=== PATIENT | female | born 1960 | race Caucasian/White ===

== ENCOUNTER 2023-12-19 06:14 | Day surgery (SDC) | payer OTHER ==
[~2023-12-19] VITALS: Ht 160 cm; Wt 77.1 kg
[2023-12-19] MEDS ORDERED: CEFAZOLIN SOD 2 GM in D5W 50 ML IV ONE (07:00)
[2023-12-19] MEDS ORDERED: LR 1,000 ML IV SCH (08:15)
[2023-12-19] MEDS ORDERED: ONDANSETRON HCL 4 MG/2 ML VIAL IVP PRN ×2 (08:15→08:30)
[2023-12-19] MEDS ORDERED: HYDROmorphone 1 MG/ML INJ. CARTRIDGE IVP PRN (08:15)
[2023-12-19] MEDS ORDERED: HYDROmorphone 2 MG/ML VIAL IVP PRN (08:15)
[2023-12-19] MEDS ORDERED: KETOROLAC TROMETHAMINE 30 MG VIAL IVP PRN (08:15)
[2023-12-19] MEDS ORDERED: ONDANSETRON HCL 4 MG/2 ML VIAL ONE (08:30)
[2023-12-19] MEDS ORDERED: OXYCODONE/ACETAMINOPHEN 5-325 TABLET PO PRN ×2 (08:30)
[2023-12-19] MEDS ORDERED: NS IRRIG SOLN 5000 ML IR ONE (08:30)
[2023-12-19] MEDS ORDERED: HYDROcodone/ACETAMIN 5-325 MG TAB (NORCO/ VICODIN) PO PRN (08:30)
[2023-12-19] MEDS ORDERED: NS IRRIG SOLN 1000 ML IR ONE (08:30)
[2023-12-19] MEDS ORDERED: MIDAZOLAM HCL 5 MG/ML VIAL (VERSED) IV ONE (08:30)
[2023-12-19] MEDS ORDERED: METOCLOPRAMIDE HCL 10 MG/2 ML VIAL ONE (08:30)
[2023-12-19] MEDS ORDERED: LR 1,000 ML IV.SOLN IV ONE (08:30)
[2023-12-19] MEDS ORDERED: KETOROLAC TROMETHAMINE 30 MG VIAL ONE (08:30)
[2023-12-19] MEDS ORDERED: fentaNYL CITRATE/PF 100 MCG/2 ML AMP ONE (08:30)
[2023-12-19] MEDS ORDERED: PROPOFOL 200MG/ 20ML VIAL (DIPRIVAN) IV ONE (08:30)
[2023-12-19] MEDS ORDERED: SEVOFLURANE 15 MIN GAS INH ONE (08:30)
[2023-12-19] MEDS ORDERED: LIDOCAINE 2%, 20 ML MDV ONE (08:30)
[2023-12-19 08:43] VITALS: O2SAT 99
[2023-12-19 10:12] VITALS: BP_SYST 134; PULSE 67; RESP 20
== END 2023-12-19 10:00 | disposition home or self-care (01) ==
LOC: SDS 06:14 → SMU 06:15 → SDS 10:00
PROVIDERS: ATTEND Specialist
DX: N95.0 Postmenopausal bleeding (principal); N84.0 Polyp of corpus uteri; D25.0 Submucous leiomyoma of uterus; R93.89 Abnormal findings on diagnostic imaging of other specified body structures; I10 Essential (primary) hypertension; E78.00 Pure hypercholesterolemia, unspecified; E66.3 Overweight; Z68.30 Body mass index [BMI] 30.0-30.9, adult; Z98.51 Tubal ligation status; Z79.899 Other long term (current) drug therapy
CPT/HCPCS: 87081; 58561; 88305; J0690; J1885; J2765; J2250; J2405; J2704; J3010; J7060; J7120; C1819; J2001